=== PATIENT | female | born 1960 | race Two or more races ===

== ENCOUNTER 2017-02-21 11:04 | Emergency (ER) | payer MEDICAID ==
[~2017-02-21] VITALS: Ht 154.9 cm; Wt 54.4 kg
[2017-02-21 13:06] LABS: APPEARANCE,URINE SLIGHTLY CLOUDY; BILIRUBIN, URINE 1+ (NEGATIVE); GLUCOSE, URINE (UA) NEGATIVE (NEGATIVE); KETONES,URINE 1+ (NEGATIVE); LEUKOCYTE ESTERASE ,URINE 3+ (NEGATIVE); NITRITE,URINE NEGATIVE (NEGATIVE); PH,URINE 5 (4.5-8.0); PROTEIN,URINE 2+ (NEGATIVE); UROBILINOGEN,URINE 1 MG/DL (0.0-1.0)
[2017-02-21 13:29] LABS: COLOR,URINE YELLOW
[2017-02-21] MEDS ORDERED: Cephalexin 500mg cap ORAL ONE (14:00)
--- NOTE | 2017-02-21 14:01 | Emergency Room Report ---
History of Present Illness General Chief Complaint: Abdominal Pain Source: Patient Present Illness HPI Patient presents with URI and decreased appetite for 3 days. Lips have broken out also. Non-productive cough. No flu shot. No NVD. No dysuria. Mother also ill with URI sy. Patient not take any medications. Pain in body reported 10/10, constant, more myalgias and arthralgias with some headache. 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 No mucosal lesions Neck: full range of motion, supple Respiratory: lungs clear, normal breath sounds, no respiratory distress, speaking full sentences Cardiovascular #1: regular rate, rhythm Cardiovascular #2: 2+ radial (R) Gastrointestinal: normal inspection Musculoskeletal: no calf tenderness Neurologic: alert, normal gait, grossly normal Psychiatric: mood/affect normal Skin: no rash Medical Decision Making Diagnostic Impression: Primary Impression: Influenza Additional Impressions: UTI (urinary tract infection) Qualified Codes: N30.00 - Acute cystitis without hematuria Cold sore ER Course Patient presents with 3 d of URI and arthralgias. Ddx: flu, viral process, cold sores, PNA amongst others. Mother here with evaluation. Patient need eval with UA. Consider treat with analgesics. Patient not toxic and not tachycardic, no IV or labs indicated. UA with pyuria. Will treat with antibiotics. Mom with + influenza A. Needs tamiflu also. Patient improved with treatment. Patient stable for outpatient observation and treatment. Laboratory Tests Test 02/21/17 12:30 Urine Color Yellow Urine Appearance Slightly cloudy Urine pH 5 (4.5-8.0) Urine Specific Hope 1.020 (1.005-1.035) Urine Protein 2+ (NEGATIVE) H Urine Glucose (UA) Negative (NEGATIVE) Urine Ketones 1+ (NEGATIVE) H Urine Occult Blood 4+ (NEGATIVE) H Urine Nitrite Negative (NEGATIVE) Urine Bilirubin 1+ (NEGATIVE) H Urine Ictotest Negative Urine Urobilinogen 1 MG/DL (0.0-1.0) H Urine Leukocyte Esterase 3+ (NEGATIVE) H Urine RBC 10-15 /HPF (0 - 2) H Urine WBC 5-10 /HPF (0 - 2) H Urine Squamous Epithelial Cells Few /LPF (NONE/OCC) Urine Bacteria Few /HPF (NONE) Urine Mucus Moderate /LPF (NONE/OCC) H Last Vital Signs Date Time Temp Pulse Resp B/P (MAP) Pulse Ox O2 Delivery O2 Flow Rate FiO2 02/21/17 14:45 98.1 66 15 135/76 99 Room Air Status: improved Disposition: HOME, SELF-CARE Condition: Improved Scripts Ibuprofen* (MOTRIN*) 600 Mg Tablet 600 MG ORAL Q6H Y for For Pain, #20 TAB Prov: Ja Nobles M.D. 02/21/17 Acyclovir* (ZOVIRAX*) 5 Gm Cream..g. 1 APPLIC TOP FIVE TIMES A DAY, #10 GM 0 Refills Prov: Ja Nobles M.D. 02/21/17 Oseltamivir Phosphate (Tamiflu) 75 Mg Capsule 75 MG ORAL TWICE A DAY, #10 CAP Prov: Ja Nobles M.D. 02/21/17 Cephalexin* (KEFLEX*) 500 Mg Capsule 500 MG ORAL Q6H, #28 CAP 0 Refills Prov: Ja Nobles M.D. 02/21/17 Ja Nobles M.D. Feb 21, 2017 14:01
[2017-02-21] MEDS ORDERED: KEFLEX500 MG ORAL (14:05)
[2017-02-21] MEDS ORDERED: IBUPROFEN600 MG ORAL (14:05)
[2017-02-21] MEDS ORDERED: ZOVIRAX5 GM TOP (14:05)
[2017-02-21] MEDS ORDERED: TAMIFLU75 MG ORAL (14:05)
[2017-02-21 14:45] VITALS: BP 135/76
== END 2017-02-21 15:55 | disposition home or self-care (01) ==
LOC: EMR 15:37
DX: J11.1 Influenza due to unidentified influenza virus with other respiratory manifestations (principal); N39.0 Urinary tract infection, site not specified; K13.79 Other lesions of oral mucosa
CPT/HCPCS: 81003; 99284